=== PATIENT | male | born 1945 | race Caucasian/White ===

== ENCOUNTER → 2018-07-11 12:17 | Outpatient (CLI) | payer MEDICARE, SELFPAY ==
--- NOTE | 2018-07-11 12:24 | XR_ITS ---
XR chest 2V HISTORY: ITS.REASON: SOB,WHEEZING,SARCOIDOSIS OF LUNG ORDERING PHYSICIAN: Rubi Denise PATIENT AGE: 72 years COMPARISON: 02/23/2014 FINDINGS: Normal heart size. There is hyperinflation with attenuation of the pulmonary vessels and prominence of the interstitium . The right hilum is prominent and has increased in size compared to the previous study especially in the infrahilar region. Patchy density is present in the right midlung laterally and may be due to an area of atelectasis or infiltrate. There is a nonspecific nodular opacity in the right upper lobe and 9 mm. Calcified granuloma is present in the left lung base. IMPRESSION: COPD with mild prominence of the interstitium which may be related to developing fibrotic changes. There is prominence of the hilum on both sides right greater than left which is increased on the right compared to the previous exam and may be related to prominent pulmonary vessels or adenopathy. Suggest CT of the chest with contrast for further evaluation Indeterminate 9 mm right upper lobe nodule. Right lower lobe atelectasis or fibrosis
== END ==
PROVIDERS: PCP Nurse Practitioner Family; Visit Provider Nurse Practitioner Family
DX: D86.0 Sarcoidosis of lung (principal); R06.02 Shortness of breath; R06.2 Wheezing
CPT/HCPCS: 71046

== ENCOUNTER → 2019-01-29 11:35 | Outpatient (CLI) | payer MEDICARE, SELFPAY ==
--- NOTE | 2019-01-29 11:52 | CT_ITS ---
PROCEDURE: CT ABDOMEN WO/W CON CLINICAL HISTORY: RT SIDED ABD PAIN,RUQ PAIN COMPARISON: ABDPELW/O CT ABD PELVIS W/O CONTRAST from 03/17/2015 TECHNIQUE: 75 cc intravenous contrast. Axial images obtained with sagittal and coronal reformats. All CT scans at the facility use one or more dose reduction, viz: automated exposure control, ma/kV adjustment per patient size (including targeted exams where dose is matched to indication, i.e. head), or iterative reconstruction technique. FINDINGS: Visualized portions of the lower lung melissa show bilateral peribronchial confluent soft tissue densities with ill-defined margins especially in both lower lobes greater in the right lower lobe. This is associated with small parenchymal densities most of which have a tree-in-bud configuration. There is a partially calcified subcarinal lymph node with short axis diameter of 2.4 centimeters. Liver shows a few punctate peripheral hypodense foci involving the right and left hepatic lobe. These measure 3 millimeters or smaller. These are likely benign. Gallbladder, pancreas, spleen, and adrenal glands are normal. There is no aortic dilatation. The visualized GI tract is unremarkable and visualized portions of the appendix appear normal. Right kidney shows a 1 millimeter upper pole and lower pole stone and a 2 millimeter midpole stone. Left kidney shows no renal stones and bilaterally there is no evidence of hydronephrosis or hydroureter. There are few nonspecific retroperitoneal lymph nodes, largest has a short axis diameter of 1.0 centimeter. Some of these are slightly enlarged since prior study. IMPRESSION: Nonobstructing right nephrolithiasis. Nonspecific retroperitoneal lymph node slightly larger compared to prior study. To help confirm benign process suggest follow-up CT abdomen at 6 months. Few punctate liver lesions too small to characterize although likely benign. Lower lung mleissa however show bilateral peribronchial densities with a tree-in-bud configuration in both lower lobes suggesting infectious or inflammatory process. Nonspecific somewhat enlarged subcarinal lymph node which could be reactive from infection although nonspecific. Consider correlating clinically and recommend CT chest with intravenous contrast. Dictated by: Ever Thayer 01/29/2019 13:10 Electronically signed by Ever Thayer in [place] 01/29/2019 13:10
[2019-01-29 12:13] LABS: Blood Urea Nitrogen 23 mg/dL (7-18); Creatinine,Serum 1.07 mg/dL (0.70-1.30); Estimated Glomerular Filt Rate 68 ml/min (>60); GFR (African American) 82 ML/MIN (>60)
== END ==
PROVIDERS: PCP Family Medicine; Visit Provider Family Medicine
DX: R10.9 Unspecified abdominal pain (principal); R10.11 Right upper quadrant pain
CPT/HCPCS: 36415; 74170; 82565; 84520; Q9967